=== PATIENT | male | born 1970 | race Two or more races ===

== ENCOUNTER 2024-07-31 09:26 | Emergency (ER) | payer OTHER ==
[~2024-07-31] VITALS: Ht 180.3 cm; Wt 115.7 kg
[2024-07-31] MEDS ORDERED: COZAAR100 MG PO (09:54)
[2024-07-31] MEDS ORDERED: CIPROFLOXACIN IN 5 % DEXTROSE 400 MG/200 ML PIGGYBAG IV STA (10:35)
[2024-07-31] MEDS ORDERED: METRONIDAZOLE/SODIUM CHLORIDE 500 MG/100 ML PIGGYBACK IV STA (10:35)
[2024-07-31] MEDS ORDERED: MEPERIDINE HCL/PF 50 MG/ML VIAL IM STA (10:36)
[2024-07-31 10:57] LABS: HEMATOCRIT 42.1 % (39.0-48.0); HEMOGLOBIN 14.2 g/dL (13-16.00); MEAN CELL VOLUME 77.6 fL (80.0-100.00); MEAN CORPUSCULAR HEMOGLOBIN 26.1 pg (27.00-32.0); MEAN CORPUSCULAR HGB CONC 33.7 g/dl (32.0-36.0); PLATELET COUNT 300 K/uL (150-450); RED BLOOD COUNT 5.43 M/uL (4.00-6.00); RED CELL DISTRIBUTION WIDTH 14.4 % (11.5-14.5)
[2024-07-31 11:22] LABS: CALCIUM 8.8 mg/dL (8.5-10.1); CREATININE SERUM 0.94 mg/dL (0.70-1.30); GFR 83.63; POTASSIUM 3.99 mEq/L (3.5-5.1)
[2024-07-31 12:20] LABS: URINE APPEARANCE Clear; URINE BILIRRUBIN Negative (NEGATIVE); URINE BLOOD Negative; URINE COLOR Dark Yellow; URINE GLUCOSE Negative (NEGATIVE); URINE KETONE Trace (NEGATIVE); URINE LEUKOCYTE Negative; URINE NITRATE Negative; URINE PROTEIN Negative (NEGATIVE)
[2024-07-31 12:22] LABS: URINE BACTERIA 251.9 uL (0.0-1933); URINE EPITHELIAL CELLS 10.5 uL (0.0-38.8); URINE RBC 13.5 uL (0.0-20.8); URINE WBC 8.3 uL (0.0-23.2)
== END 2024-07-31 14:07 | disposition home or self-care (01) ==
LOC: ER 09:28
PROVIDERS: General Practice
DX: K57.32 Diverticulitis of large intestine without perforation or abscess without bleeding (principal); I10 Essential (primary) hypertension

== ENCOUNTER 2024-11-24 14:58 | Emergency (ER) | payer OTHER ==
[~2024-11-24] VITALS: Ht 180.3 cm; Wt 121.6 kg
[~2024-11-24 14:58] MED LIST: COZAAR100 MG PO
[2024-11-24] MEDS ORDERED: ORPHENADRINE CITRATE 30 MG/ML AMPUL IM STA (16:35)
[2024-11-24] MEDS ORDERED: KETOROLAC TROMETHAMINE 15 MG VIAL IM STA (16:35)
[2024-11-24 17:09] LABS: HEMATOCRIT 47.9 % (39.0-48.0); HEMOGLOBIN 16.1 g/dL (13-16.00); MEAN CELL VOLUME 77.9 fL (80.0-100.00); MEAN CORPUSCULAR HEMOGLOBIN 26.2 pg (27.00-32.0); MEAN CORPUSCULAR HGB CONC 33.6 g/dl (32.0-36.0); PLATELET COUNT 310 K/uL (150-450); RED BLOOD COUNT 6.14 M/uL (4.00-6.00); RED CELL DISTRIBUTION WIDTH 14.3 % (11.5-14.5)
[2024-11-24 17:35] LABS: CALCIUM 9.7 mg/dL (8.5-10.1); CREATININE SERUM 0.97 mg/dL (0.70-1.30); GFR 80.65; POTASSIUM 4.41 mEq/L (3.5-5.1)
[2024-11-24] MEDS ORDERED: ADVIL DUAL ACT1 EACH PO (18:05)
== END 2024-11-24 18:14 | disposition home or self-care (01) ==
LOC: ER 15:00
PROVIDERS: Emergency Medicine
DX: R51.9 Headache, unspecified (principal); I10 Essential (primary) hypertension